=== PATIENT | female | born 1995 | race Two or more races ===

== ENCOUNTER 2017-01-26 20:51 | Emergency (ER) | payer SELFPAY ==
[~2017-01-26] VITALS: Ht 149.9 cm; Wt 65.8 kg
[2017-01-26] MEDS ORDERED: NO MEDICATIONS (21:14)
== END 2017-01-26 22:07 | disposition home or self-care (01) ==
LOC: SED 20:51
DX: J02.9 Acute pharyngitis, unspecified (principal)
CPT/HCPCS: 87651; 99283